=== PATIENT | female | born 1975 | race Caucasian/White ===

== ENCOUNTER 2018-09-23 06:18 | Day surgery (SDC) | payer OTHER ==
[2018-09-19 13:21] LABS: Urine Bacteria MANY /hpf (None Seen); Urine Blood 2+ /uL (Negative); Urine Hyaline Cast FEW /lpf (0 - 2); Urine Specific Gravity 1.009 (1.001-1.035); Urine WBC 32 /hpf (0 - 5)
[2018-09-19 13:24] LABS: Basophils # (auto) 0.1 uL; Basophils % (auto) 1.3 % (0.0-2.0); Eosinophils # (auto) 0.1 uL; Eosinophils % (auto) 1.3 % (0.0-7.0); Hematocrit 38.4 % (36.0-46.0); Hemoglobin 13.1 g/dL (12.2-16.2); Lymphocytes # (auto) 1.7 uL; Lymphocytes % (auto) 29.6 % (10.0-50.0); Mean Corpuscular Hemoglobin 31.8 pg (28.0-32.0); Mean Corpuscular Hgb Conc. 34.1 g/dL (32.0-36.0); Mean Corpuscular Volume 93.3 fL (80.0-100.0); Monocytes # (auto) 0.5 uL; Neutrophils # (auto) 3.5 uL; Neutrophils % (auto) 59.8 % (37.0-80.0); Nucleated Red Blood Cells % 0.1 %; Platelet Count (auto) 305 10^3/uL (140-450); Red Blood Cells 4.12 10^6/uL (4.0-5.20); Red Cell Distribution Width 12.6 % (11.8-14.3); White Blood Cell 5.9 10^3/uL (4.4-10.8)
[2018-09-19 13:31] LABS: INR 0.95 (0.9-1.15); Partial Thromboplastin Time 24.5 sec (23.64-32.05)
[2018-09-19 13:33] LABS: Calcium 8.9 mg/dL (8.5-10.1); Potassium 3.8 mmol/L (3.5-5.1)
[2018-09-19 13:36] LABS: Bilirubin, Total 0.6 mg/dL (0.2-1.0)
[~2018-09-23] VITALS: Ht 172.7 cm; Wt 77.1 kg
[~2018-09-23 06:18] MED LIST: LOSA-39 PO
[2018-09-23] MEDS ORDERED: ceFAZolin 1GM/50ML 50 ML IV ONE (07:09)
[2018-09-23] MEDS ORDERED: LIDOCAINE 1% HCL (LOCAL ANESTH.) INJ 20ML MDV ONE (07:13)
[2018-09-23] MEDS ORDERED: ROCURONIUM 10MG/ML 10ML VIAL IV ONE (08:04)
[2018-09-23] MEDS ORDERED: SUCCINYLCHOLINE CHLORIDE 20 MG/ML 10ML VIAL IV ONE (08:04)
[2018-09-23] MEDS ORDERED: ROPIVACAINE 0.5% (5MG/ML) 20ML AMPULE IJ ONE (08:04)
[2018-09-23] MEDS ORDERED: MIDAZOLAM HCL 1MG/1ML-2 ML VIAL ONE (08:09)
[2018-09-23] MEDS ORDERED: PROPOFOL 10 MG/ML 20 ML IV ONE (08:09)
[2018-09-23] MEDS ORDERED: PHENYLEPHRINE HCL 10 MG/ML VL ONE (08:09)
[2018-09-23] MEDS ORDERED: ePHEDrine SULFATE 50 MG/ML AMP ONE (08:09)
[2018-09-23] MEDS ORDERED: DexAMETHasone SOD PHOS 10MG/1ML VIAL INJ ONE (08:09)
[2018-09-23] MEDS ORDERED: fentaNYL CITRATE 100 MCG/2 ML VL ONE (08:09)
[2018-09-23] MEDS ORDERED: GLYCOPYRROLATE 0.2 MG/ML 1ML VIAL ONE (09:43)
[2018-09-23] MEDS ORDERED: NEOSTIGMINE 1 MG/ML INJ (10mg/10ML VIAL) ONE (09:43)
[2018-09-23] MEDS ORDERED: KETOROLAC TROMETH 30 MG/ML 1ML VIAL ONE (10:28)
[2018-09-23] MEDS ORDERED: ONDANSETRON HCL 4 MG/2 ML VIAL IV ONE (10:30)
[2018-09-23] MEDS ORDERED: HYDROmorphone HCL 2 MG/ML VL IV PRN ×2 (10:30)
[2018-09-23] MEDS ORDERED: MIDAZOLAM HCL 1MG/1ML-2 ML VIAL IV PRN (10:30)
[2018-09-23 11:08] VITALS: BP 145/78
== END 2018-09-23 11:23 | disposition home or self-care (01) ==
LOC: SUR 06:18
PROVIDERS: ATTEND Orthopaedic Surgery
DX: M75.101 Unspecified rotator cuff tear or rupture of right shoulder, not specified as traumatic (principal); M75.81 Other shoulder lesions, right shoulder; R22.31 Localized swelling, mass and lump, right upper limb; M75.01 Adhesive capsulitis of right shoulder; M75.41 Impingement syndrome of right shoulder; M75.51 Bursitis of right shoulder; M65.811 Other synovitis and tenosynovitis, right shoulder; I12.9 Hypertensive chronic kidney disease with stage 1 through stage 4 chronic kidney disease, or unspecified chronic kidney disease; N18.9 Chronic kidney disease, unspecified; Z79.899 Other long term (current) drug therapy; Z98.890 Other specified postprocedural states; Z98.51 Tubal ligation status
CPT/HCPCS: 23076; 23412; 23415; 29822; 36415; 64415; 76942; 80053; 81001; 84702; 85025; 85610; 85730; 88304; 93005; J0330; J0690; J1100; J1885; J2250; J2370; J2704; J2795; J3010; 76937; J2001

== ENCOUNTER 2024-03-16 13:52 | Emergency (ER) | payer OTHER ==
[~2024-03-16] VITALS: Ht 175.3 cm; Wt 81.8 kg
[~2024-03-16 13:52] MED LIST changes: -LOSA-39 PO; +LOSA-535 PO
--- NOTE | 2024-03-16 18:27 | ED.PDOC ---
GI ASSESSMENT HPI Comments 48 y.o female presents to the ED for a chief complaint of diffused abdominal pain associated with nausea and vomiting that presented at 10am today. Patient described pain as sharp, worsened around 1300 while at work and states it is constant but intensity is intermittent. Patient reports pain first was a 10/10 on the pain scale but now is a 7/10. She denies any nausea, vomiting, diarrhea, constipation, fever. Chief Complaint: Abdominal Pain Time Seen by MD: 18:14 Primary Care Provider: BON Whittington Notes: Nurses Notes, Medications, Allergies Allergies: Coded Allergies: NO KNOWN ALLERGIES (Unverified , 09/19/18) Home Meds Reported Medications Losartan Potassium (Losartan Potassium) 100 Mg Tab, 100 MG PO DAILY for 30 Days, MG 09/19/18 Information Source: Patient Mode of Arrival: Wheelchair Timing: Hours Duration: Since onset Quality: Sharp Vomitus: None Stool: Normal Severity: Moderate Recent: None Recent Hx of: None Pain Location: Epigastric Modifying Factors: Nothing Associated sign and symptoms: Nausea, Abdominal Pain Past Medical History Past Medical History (Other): One kidney only Surgical History (Other): tummy tuck [employer] History: No Pertinent [employer]HER History Family History Family History: Reviewed,noncontributory to illness Social History Smoker: Non-Smoker Alcohol: Denies ETOH Use Drugs: Denies Drug Use Lives In: Home Constitutional: reports: chills; denies: diaphoresis, fatigue, fever, malaise, sweats, weakness, others EENTM: denies: blurred vision, double vision, ear bleeding, ear discharge, ear drainage, ear pain, ear ringing, eye pain, eye redness, hearing loss, mouth pain, mouth swelling, nasal discharge, nose bleeding, nose congestion, nose pain, photophobia, tearing, throat pain, throat swelling, voice changes, others Respiratory: denies: cough, hemoptysis, orthopnea, SOB at rest, shortness of breath, SOB with excertion, stridor, wheezing, others Cardiovascular: denies: chest pain, dizzy spells, diaphoresis, Dyspnea on exertion, edema, irregular heart beat, left arm pain, lightheadedness, palpitations, PND, syncope, others Gastrointestinal: reports: abdominal pain, nausea; denies: abdomen distended, blood streaked bowels, constipated, diarrhea, dysphagia, difficulty swallowing, hematemesis, melena, poor appetite, poor fluid intake, rectal bleeding, rectal pain, vomiting, others Genitourinary: denies: abnormal vagina bleeding, burning, dyspareunia, dysuria, flank pain, frequency, hematuria, incontinence, pain, , vagina discharge, urgency, others Neurological: denies: dizziness, fainting, headache, left sided numbness, left sided weakness, numbness, paresthesia, pre-existing deficit, right sided numbness, right sided weakness, seizure, speech problems, tingling, tremors, weakness, others Musculoskeletal: denies: back pain, gout, joint pain, joint swelling, muscle pain, muscle stiffness, neck pain, others Integumetry: denies: bruises, change in color, change in hair/nails, dryness, laceration, lesions, lumps, rash, wounds, others Allergic/Immunocompromised: denies: Difficulty Healing, Frequent Infections, Hives, Itching, others Hematologic/Lymphatic: denies: anemia, blood clots, easy bleeding, easy bruising, swollen glands, others Endocrine: denies: excessive hunger, excessive sweating, excessive thirst, excessive urination, flushing, intolerance to cold, intolerance to heat, unexplained weight gain, unexplained weight loss, others Psychiatric: denies: anxiety, bipolar disorder, depression, hopeless, panic disorder, schizophrenia, sleepless, suicidal, others All Other Systems: Reviewed and Negative Physical Exam General Appearance: No Apparent Distress, Normal HEENT: Normal ENT Inspection, Pharynx Normal, TMs Normal Neck: Full Range of Motion, Non-Tender, Normal, Normal Inspection Respiratory: Chest Non-Tender, Lungs Clear, No Accessory Muscle Use, No Respir atory Distress, Normal Breath Sounds Cardiovascular: No Edema, No JVD, No Murmur, No Gallop, Normal Peripheral Pulses, Regular Rate/Rhythm Breast Exam: Deferred Gastrointestinal: Epigastric (mid ), Tenderness Genitalia: Deferred Pelvic: Deferred Rectal: Deferred Extremities: No calf tenderness, Normal capillary refill, Normal inspection, Normal range of motion, Non-tender, No pedal edema Musculoskeletal : Apperance: Normal Neurologic: Alert, radiator tester II-XII nml as Tested, No Motor Deficits, Normal Affect, Normal Mood, No Sensory Deficits Cerebellar Function: Normal Reflexes: Normal Skin: Dry, Normal Color, Warm Lymphatic: No Adenopathy Was a procedure done? Was a procedure done?: No GI differential Dx Differential Diagnosis: Esophagitis, Gastritis/PUD, Gastroenteritis, Electrolyte Imbalance, Viral X-Ray, Labs, Meds, VS Vital Signs Date Time Temp Pulse Resp B/P (MAP) Pulse Ox O2 Delivery O2 Flow Rate FiO2 03/16/24 20:54 75 19 100 Room Air* 0 21 03/16/24 20:40 63 15 154/96 03/16/24 20:34 62 15 154/96 (115) 100 03/16/24 15:43 58 18 135/79 (97) 100 03/16/24 14:15 97.4 58 18 155/84 (107) 100 Lab Test 03/16/24 19:34 03/16/24 14:16 Range/Units White Blood Count 6.6 4.4-10.8 10^3/uL Red Blood Count 3.85 L 4.0-5.20 10^6/uL Hemoglobin 11.8 L 12.2-16.2 g/dL Hematocrit 35.3 L 36.0-46.0 % Mean Corpuscular Volume 91.8 80.0-100.0 fL Mean Corpuscular Hemoglobin 30.8 28.0-32.0 pg Mean Corpuscular Hemoglobin Concent 33.5 32.0-36.0 g/dL Red Cell Distribution Width 14.5 H 11.8-14.3 % Platelet Count 305 140-450 10^3/uL Mean Platelet Volume 7.0 6.9-10.8 fL Neutrophils (%) (Auto) 66.5 37.0-80.0 % Lymphocytes (%) (Auto) 25.3 10.0-50.0 % Monocytes (%) (Auto) 7.0 0.0-12.0 % Eosinophils (%) (Auto) 0.6 0.0-7.0 % Basophils (%) (Auto) 0.6 0.0-2.0 % Neutrophils # (Auto) 4.4 1.6-8.6 10 ^3/uL Lymphocytes # (Auto) 1.7 0.4-5.4 10 ^3/uL Monocytes # (Auto) 0.5 0-1.3 10 ^3/uL Eosinophils # (Auto) 0 0-0.8 10 ^3/uL Basophils # (Auto) 0 0-0.2 10 ^3/uL Nucleated Red Blood Cells 0.1 % Sodium Level 140 136-145 mmol/L Potassium Level 4.0 3.5-5.1 mmol/L Chloride Level 107 98-107 mmol/L Carbon Dioxide Level 27 20-31 mmol/L Anion Gap 6 5-15 Blood Urea Nitrogen 12 9-23 mg/dL Creatinine 0.72 0.550-1.02 mg/dL Glomerular Filtration Rate Calc 104 >90 mL/min BUN/Creatinine Ratio 16.7 10.0-20.0 Serum Glucose 97 74-106 mg/dL Calcium Level 9.7 8.7-10.4 mg/dL Total Bilirubin 0.5 0.2-1.0 mg/dL Aspartate Amino Transferase (AST) 21 13-40 U/L Alanine Aminotransferase (ALT) 16 7-40 U/L Alkaline Phosphatase 98 46-116 U/L Total Protein 7.3 5.7-8.2 g/dL Albumin 4.6 3.2-4.8 g/dL Lipase 31 12-53 U/L Urine Color Light-yellow Yellow Urine Clarity Clear Clear Urine pH 6.0 5.0-9.0 Urine Specific Blackwell 1.021 1.001-1.035 Urine Protein Negative Negative Urine Ketones Negative Negative Urine Blood Negative Negative /uL Urine Nitrite Negative Negative Urine Bilirubin Negative Negative Urine Urobilinogen Normal Negative mg/dL Urine Leukocyte Esterase Negative Negative /uL Urine RBC None seen 0 - 4 /hpf Urine WBC None seen 0 - 5 /hpf Urine Squamous Epithelial Cells Few <5 /hpf Urine Bacteria None seen None Seen /hpf Urine Hyaline Casts Few 0 - 2 /lpf Urine Glucose Normal Normal mg/dL Current Medications Medications (Trade) Dose Ordered Sig/Bhavik Route Start Time Stop Time Status Last Admin Morphine Sulfate 4 mg ONCE ONCE IM 03/16/24 20:00 03/16/24 20:01 DC 03/16/24 20:40 Ondansetron HCl (Zofran) 4 mg ONCE ONCE IM 03/16/24 20:00 03/16/24 20:01 DC 03/16/24 20:39 X-Ray, Labs, Meds, VS Comment Imaging: X-rays and CT scans were reviewed and interpreted by this provider, imaging shows no fractures and no pathological disease. Pending radiology review. Laboratory: Labs reviewed and interpreted by this provider. No significant abnormalities noted. Patient has prior medical visits reviewed. Med reconciliation performed Vital signs reviewed Time of 1ST Reevaluation: 18:23 Reevaluation 1ST: Improved Patient Education/Counseling: Diagnosis, Treatment, Prognosis, Need For Follow Up (Follow up in the emergency department in the next 4-6 hours if symptoms worsen. Follow up in the emergency room in 24 hours if symptoms have not improved.) Family Education/Counseling: No Family Present Departure 1 Departure Time of Disposition: 21:35 Impression: Primary Impression: Gastritis Qualified Codes: K29.00 - Acute gastritis without bleeding Disposition: HOME / SELF CARE / HOMELESS Condition: Fair e-Prescriptions Omeprazole (Omeprazole Dr) 40 Mg Cap 40 MG PO DAILY, #30 CAP Prov: ALYSSA MARX 03/16/24 Ondansetron Odt 4MG Tab (ZOFRAN PO) 4 Mg Tb 4 MG PO TID PRN, #20 TAB ODT TAB-DISSOLVE IN MOUTH, THEN SWALLOW Prov: ALYSSA MARX 03/16/24 Discharged With: Self Critical Care Note Critical Care Time?: No Stability Stability form required: No I personally scribed for ALYSSA MARX ([email or web address]) on 03/16/24 at 18:27. Electronically submitted by Nory Berman ([facility]). ALYSSA MARX Mar 16, 2024 18:27
--- NOTE | 2024-03-16 18:46 | DVH ---
EXAM: CT Abdomen and Pelvis Without Intravenous Contrast CLINICAL INDICATION: abd pain TECHNIQUE: Axial computed tomography images of the abdomen and pelvis without intravenous contrast. This CT exam was performed using one or more of the following dose reduction techniques: automated exposure control, adjustment of the mA and/or kV according to patient size, and/or use of iterative r econstruction technique. RADIATION DOSE: CTDlvol= 15 mGy, DLP= 815.48 mGy-cm COMPARISON: None FINDINGS: LUNG BASES: Unremarkable. No mass. No consolidation. ABDOMEN: LIVER: Unremarkable. GALLBLADDER AND BILE DUCTS: Unremarkable. No calcified stones. No ductal dilation. PANCREAS: Unremarkable. No ductal dilation. SPLEEN: Unremarkable. No splenomegaly. ADRENALS: Unremarkable. No mass. KIDNEYS AND URETERS: Mild to moderate right hydro ureteronephrosis without obstruction calculus. STOMACH AND BOWEL: Unremarkable. No obstruction. No mucosal thickening. PELVIS: APPENDIX: Normal appendix. BLADDER: Unremarkable. No stones. REPRODUCTIVE: Suggestion of calcified urine fibroid. ABDOMEN and PELVIS: INTRAPERITONEAL SPACE: Unremarkable. No free air. No significant fluid collection. BONES/JOINTS: No acute fracture. No dislocation. SOFT TISSUES: Unremarkable. VASCULATURE: Unremarkable. No abdominal aortic aneurysm. LYMPH NODES: Unremarkable. No enlarged lymph nodes. OTHER FINDINGS: . . IMPRESSION: 1. Normal appendix. 2. Mild to moderate right hydro ureteronephrosis without obstruction calculus. 3. Suggestion of calcified urine fibroid. HS:Y
[2024-03-16 19:55] LABS: Basophils # (auto) 0 10 ^3/uL (0-0.2); Basophils % (auto) 0.6 % (0.0-2.0); Eosinophils # (auto) 0 10 ^3/uL (0-0.8); Eosinophils % (auto) 0.6 % (0.0-7.0); Hematocrit 35.3 % (36.0-46.0); Hemoglobin 11.8 g/dL (12.2-16.2); Lymphocytes # (auto) 1.7 10 ^3/uL (0.4-5.4); Lymphocytes % (auto) 25.3 % (10.0-50.0); Mean Corpuscular Hemoglobin 30.8 pg (28.0-32.0); Mean Corpuscular Hgb Conc. 33.5 g/dL (32.0-36.0); Mean Corpuscular Volume 91.8 fL (80.0-100.0); Monocytes # (auto) 0.5 10 ^3/uL (0-1.3); Neutrophils # (auto) 4.4 10 ^3/uL (1.6-8.6); Neutrophils % (auto) 66.5 % (37.0-80.0); Nucleated Red Blood Cells % 0.1 %; Platelet Count (auto) 305 10^3/uL (140-450); Red Blood Cells 3.85 10^6/uL (4.0-5.20); Red Cell Distribution Width 14.5 % (11.8-14.3); White Blood Cell 6.6 10^3/uL (4.4-10.8)
[2024-03-16 20:11] LABS: Alanine Aminotransferase 16 U/L (7-40); Albumin 4.6 g/dL (3.2-4.8); Alkaline Phosphatase 98 U/L (46-116); Anion Gap 6 (5-15); Aspartate Aminotransferase 21 U/L (13-40); BUN/Creatinine Ratio 16.7 (10.0-20.0); Bilirubin, Total 0.5 mg/dL (0.2-1.0); Blood Urea Nitrogen 12 mg/dL (9-23); Calcium 9.7 mg/dL (8.7-10.4); Carbon Dioxide 27 mmol/L (20-31); Glucose 97 mg/dL (74-106); Lipase 31 U/L (12-53); Sodium 140 mmol/L (136-145); Total Protein 7.3 g/dL (5.7-8.2)
[2024-03-16 20:21] LABS: Chloride 107 mmol/L (98-107)
[2024-03-16] MEDS: ONDANSETRON HCL 4 MG/2 ML VIAL IM ONE (20:39)
[2024-03-16] MEDS: MORPHINE SULFATE 4 MG/ML SYR/VIAL IM ONE (20:40)
[2024-03-16 20:54] VITALS: PULSE 75; RESP 19; O2SAT 100
[2024-03-16 20:55] LABS: Urine Bacteria None Seen /hpf (None Seen); Urine WBC None Seen /hpf (0 - 5)
[2024-03-16 21:08] LABS: Urine Blood Negative /uL (Negative); Urine Clarity Clear (Clear); Urine Color Light-Yellow (Yellow); Urine Hyaline Cast FEW /lpf (0 - 2); Urine Protein, UAD Negative (Negative); Urine Specific Gravity 1.021 (1.001-1.035); Urine Squamous Epithelial Cell FEW /hpf (<5); Urine Urobilinogen Normal (Negative)
[2024-03-16] MEDS ORDERED: OMEP-448 PO (21:37)
[2024-03-16] MEDS ORDERED: ZOFR4T PO (21:37)
[2024-03-16 22:08] VITALS: BP 154/94; PULSE 67; RESP 16; TEMP 98.4; O2SAT 98
== END 2024-03-16 22:10 | disposition home or self-care (01) ==
LOC: ER 13:52
DX: K29.70 Gastritis, unspecified, without bleeding (principal); Z98.890 Other specified postprocedural states
CPT/HCPCS: 36415; 74176; 80053; 81001; 83690; 85025; 96372; 99285; J2270; J2405

== ENCOUNTER 2024-10-16 18:01 | Inpatient (IN) | payer OTHER ==
[~2024-10-16] VITALS: Ht 175.3 cm; Wt 92.1 kg
[~2024-10-16 18:01] MED LIST changes: +OMEP-448 PO; +ZOFR4T PO
[2024-10-16 21:00] VITALS: BP 128/92; PULSE 56; RESP 17; TEMP 98.9; O2SAT 96
[2024-10-16] MEDS ORDERED: MORPHINE SULFATE INJ 2 MG/ml SYRG IV PRN (21:30)
[2024-10-16] MEDS ORDERED: NITROGLYCERIN 0.4 MG SL TAB SL PRN (21:30)
[2024-10-16 22:18] LABS: Hematocrit 28.4 % (36.0-46.0); Hemoglobin 9.9 g/dL (12.2-16.2); Mean Corpuscular Hemoglobin 33.3 pg (28.0-32.0); Mean Corpuscular Volume 95.3 fL (80.0-100.0); Nucleated Red Blood Cells % 0.0 %
[2024-10-16 22:35] LABS: Triglycerides 83 mg/dL (< 150)
[2024-10-16 22:37] LABS: Cholesterol 150 mg/dL (< 200); HDL Cholesterol 54 mg/dL (40-59)
[2024-10-16 22:38] LABS: Albumin 3.9 g/dL (3.2-4.8); Alkaline Phosphatase 84 U/L (46-116); Anion Gap 7 (5-15); BUN/Creatinine Ratio 13.8 (10.0-20.0); Bilirubin, Total 0.4 mg/dL (0.2-1.0); Blood Urea Nitrogen 12 mg/dL (9-23); Carbon Dioxide 26 mmol/L (20-31); Glucose 92 mg/dL (74-106); Potassium 3.8 mmol/L (3.5-5.1); Sodium 141 mmol/L (136-145); Total Protein 6.2 g/dL (5.7-8.2)
[2024-10-16 22:39] LABS: Alanine Aminotransferase 9 U/L (7-40); Calcium 8.2 mg/dL (8.7-10.4); Chloride 108 mmol/L (98-107)
[2024-10-16] MEDS: FUROSEMIDE 20 MG/2 ML VIAL IV ONE (22:57)
[2024-10-16] MEDS: HYDROcodone-ACET 10/325MG TAB PO PRN (22:58)
--- NOTE | 2024-10-16 23:39 | DVHHP2 ---
Allergies: Coded Allergies: NO KNOWN ALLERGIES (Unverified , 09/19/18) Home Meds Active Scripts Omeprazole (Omeprazole Dr) 40 Mg Cap, 40 MG PO DAILY, #30 CAP Prov:ALYSSA MARX 03/16/24 Ondansetron Odt 4MG Tab (ZOFRAN PO) 4 Mg Tb, 4 MG PO TID PRN, #20 TAB ODT TAB-DISSOLVE IN MOUTH, THEN SWALLOW Prov:ALYSSA MARX 03/16/24 Reported Medications Losartan Potassium (Losartan Potassium) 100 Mg Tab, 100 MG PO DAILY for 30 Days, MG 09/19/18 Current Medications Current Medications Medications (Trade) Dose Ordered Sig/Bhavik Route PRN Reason Start Time Stop Time Status Last Admin Nitroglycerin (Ntrostat Sublingual) 0.4 mg Q5MINP PRN SL FOR CHEST PAIN 10/16/24 21:30 Morphine Sulfate 2 mg Q30M PRN IV FOR CHEST PAIN 10/16/24 21:30 Furosemide (Lasix Injection) 20 mg BIDD IV 10/17/24 08:00 Valsartan (Diovan) 160 mg DAILY PO 10/17/24 10:00 Acetaminophen/ Hydrocodone Bitart (Halls 10/325MG Tab) 1 tab Q6HP PRN PO MODERATE PAIN (4-6 PAIN SCALE) 10/16/24 22:15 10/16/24 22:58 Levetiracetam (Keppra Tablet) 500 mg BID PO 10/17/24 10:00 Vital Signs Vital Signs Date Time Temp Pulse Resp B/P (MAP) Pulse Ox O2 Delivery O2 Flow Rate FiO2 10/16/24 22:57 132/77 10/16/24 21:00 98.9 56 17 96 98.9 SEPSIS Sepsis Screen Physician Orders Admit (10/16/24 21:24) Oxygen By Nasal Cannula (10/16/24 21:24) Nitroglycerin Sublingual (Ntrostat Subli (10/16/24 21:30) Morphine Sulfate Injection (10/16/24 21:30) Stat Ekg For Chest Pain (10/16/24 21:24) Notify Md Of Changes From Base (10/16/24 21:24) Antique Dealer For 24 Hours (10/16/24 21:24) Emergency Dysrhythmia Protocol (10/16/24 21:24) Rhythm Strips Once Every Shift (10/16/24 21:24) 2 Gm Sodium Diet (10/17/24 Breakfast) Code Status (10/16/24 21:24) Urinalysis (10/16/24 21:24) Chest Two Views Routine (10/16/24 21:24) Echo 2d Mode Cardiac Dop (10/16/24 21:24) Saline Lock (10/16/24 21:24) Furosemide Injection (Lasix Injection) (10/17/24 08:00) Valsartan (Diovan) (10/17/24 10:00) Hydrocodone-Acet 10/325mg Tab (Halls 10/ (10/16/24 22:15) Levetiracetam Tablet (Keppra Tablet) (10/17/24 10:00) Intake And Output (10/16/24 22:03) Daily Weight (10/16/24 22:03) Bilat Lower Dvt (10/16/24 23:27) Vital Signs Date Time Temp Pulse Resp B/P (MAP) Pulse Ox O2 Delivery O2 Flow Rate FiO2 10/16/24 22:57 132/77 10/16/24 21:00 98.9 56 17 128/92 (104) 96 98.9 Laboratory Tests Test 10/16/24 22:08 White Blood Count 4.4 10^3/uL (4.4-10.8) Medications Medications Dose Ordered Sig/Bhavik Route Start Time Stop Time Status Last Admin Dose Admin Acetaminophen/ Hydrocodone Bitart 1 tab Q6HP PRN PO 10/16/24 22:15 10/16/24 22:58 Furosemide 20 mg ONCE ONCE IV 10/16/24 22:00 10/16/24 22:08 DC 10/16/24 22:57 Results Labs Test 10/16/24 22:08 Range/Units White Blood Count 4.4 4.4-10.8 10^3/uL Red Blood Count 2.98 L 4.0-5.20 10^6/uL Hemoglobin 9.9 L 12.2-16.2 g/dL Hematocrit 28.4 L 36.0-46.0 % Mean Corpuscular Volume 95.3 80.0-100.0 fL Mean Corpuscular Hemoglobin 33.3 H 28.0-32.0 pg Mean Corpuscular Hemoglobin Concent 34.9 32.0-36.0 g/dL Red Cell Distribution Width 12.5 11.8-14.3 % Platelet Count 245 140-450 10^3/uL Mean Platelet Volume 6.6 L 6.9-10.8 fL Neutrophils (%) (Auto) 41.3 37.0-80.0 % Lymphocytes (%) (Auto) 45.9 10.0-50.0 % Monocytes (%) (Auto) 9.6 0.0-12.0 % Eosinophils (%) (Auto) 2.2 0.0-7.0 % Basophils (%) (Auto) 1.0 0.0-2.0 % Neutrophils # (Auto) 1.8 1.6-8.6 10 ^3/uL Lymphocytes # (Auto) 2.0 0.4-5.4 10 ^3/uL Monocytes # (Auto) 0.4 0-1.3 10 ^3/uL Eosinophils # (Auto) 0.1 0-0.8 10 ^3/uL Basophils # (Auto) 0 0-0.2 10 ^3/uL Nucleated Red Blood Cells 0.0 % Sodium Level 141 136-145 mmol/L Potassium Level 3.8 3.5-5.1 mmol/L Chloride Level 108 H 98-107 mmol/L Carbon Dioxide Level 26 20-31 mmol/L Anion Gap 7 5-15 Blood Urea Nitrogen 12 9-23 mg/dL Creatinine 0.87 0.550-1.02 mg/dL Glomerular Filtration Rate Calc 82 >90 mL/min BUN/Creatinine Ratio 13.8 10.0-20.0 Serum Glucose 92 74-106 mg/dL Hemoglobin A1c 5.3 <5.7 % A1C Calcium Level 8.2 L 8.7-10.4 mg/dL Total Bilirubin 0.4 0.2-1.0 mg/dL Aspartate Amino Transferase (AST) 17 13-40 U/L Alanine Aminotransferase (ALT) 9 7-40 U/L Alkaline Phosphatase 84 46-116 U/L B-Type Natriuretic Peptide 304.97 0-100 pg/mL Total Protein 6.2 5.7-8.2 g/dL Albumin 3.9 3.2-4.8 g/dL Triglycerides Level 83 < 150 mg/dL Cholesterol Level 150 < 200 mg/dL LDL Cholesterol 86 < 100 mg/dL HDL Cholesterol 54 40-59 mg/dL JAMARCUS SMALL MD Oct 16, 2024 23:39
[2024-10-16 23:49] VITALS: PULSE 77; RESP 17; O2SAT 97
[2024-10-17] VITALS (9 sets, daily range): BP systolic 111–128; BP diastolic 67–89; PULSE 58–73; RESP 17–20; TEMP 98–99.5; O2SAT 96–100
--- NOTE | 2024-10-17 00:25 | DVH ---
Bilateral lower extremity venous duplex Clinical History: BLE SWELLING Comparison: None Technique: Duplex Doppler evaluation of the deep venous systems of both lower extremities from the common femora l veins to the popliteal veins including color Doppler and spectral/pulsed waveform analysis was perf ormed. Findings: RIGHT SIDE: The common femoral vein demonstrates appropriate compressibility and waveform variability. There is compressibility/patency of the great saphenous vein at the proximal thigh. The femoral vein demonstrates appropriate compressibility and waveform variability. The deep femoral vein demonstrates appropriate compressibility and waveform variability. The popliteal vein demonstrates appropriate compressibility and waveform variability. There is normal compressibility at the tibioperoneal trunk. LEFT SIDE: The common femoral vein demonstrates appropriate compressibility and waveform variability. There is compressibility/patency of the great saphenous vein at the proximal thigh. The femoral vein demonstrates appropriate compressibility and waveform variability. The deep femoral vein demonstrates appropriate compressibility and waveform variability. The popliteal vein demonstrates appropriate compressibility and waveform variability. There is normal compressibility at the tibioperoneal trunk. Impression: 1. No right or left femoropopliteal venous thrombosis. 2. 2.4 x 1 x 2.5 cm left inguinal lymphadenopathy.
[2024-10-17] MEDS ORDERED: HYDR-4902 PO (01:23)
[2024-10-17 08:08] LABS: Hematocrit 31.1 % (36.0-46.0); Hemoglobin 10.9 g/dL (12.2-16.2); Mean Corpuscular Hemoglobin 33.3 pg (28.0-32.0); Mean Corpuscular Volume 94.4 fL (80.0-100.0); Nucleated Red Blood Cells % 0.1 %
[2024-10-17 08:10] LABS: Alanine Aminotransferase 11 U/L (7-40); Alkaline Phosphatase 84 U/L (46-116); Anion Gap 11 (5-15); BUN/Creatinine Ratio 11.4 (10.0-20.0); Blood Urea Nitrogen 10 mg/dL (9-23); Calcium 8.8 mg/dL (8.7-10.4); Carbon Dioxide 25 mmol/L (20-31); Chloride 106 mmol/L (98-107); Glucose 90 mg/dL (74-106); Potassium 3.5 mmol/L (3.5-5.1); Sodium 142 mmol/L (136-145); Total Protein 6.8 g/dL (5.7-8.2); Triglycerides 144 mg/dL (< 150)
[2024-10-17 08:11] LABS: Albumin 4.4 g/dL (3.2-4.8); Bilirubin, Total 0.6 mg/dL (0.2-1.0); Cholesterol 167 mg/dL (< 200); HDL Cholesterol 57 mg/dL (40-59)
[2024-10-17] MEDS: levETIRAcetam 500 MG TAB PO SCH (09:17)
[2024-10-17] MEDS: VALSARTAN 80 MG TAB PO SCH (09:18)
[2024-10-17] MEDS: FUROSEMIDE 20 MG/2 ML VIAL IV SCH (09:19)
[2024-10-17 11:21] LABS: Urine Protein, UAD Negative (Negative)
--- NOTE | 2024-10-17 14:04 | DVH ---
CHEST RADIOGRAPH Indication: DOCTOR ORDER/ADMISSION Technique: Frontal and lateral view of the chest was obtained Comparison: None FINDINGS: Lines and Tubes: None Lungs: Clear Pleura: No effusion. No pneumothorax. Cardiomediastinal contours: Unremarkable Bones: Unremarkable IMPRESSION: 1. No evidence of acute disease.
--- NOTE | 2024-10-17 20:20 | DVHPN2 ---
Progress Note - Dictate Date Seen: Oct 17, 2024 Subjective CHF R flank paim vital signs Vital Sign Date Time Temp Pulse Resp B/P (MAP) Pulse Ox O2 Delivery O2 Flow Rate FiO2 10/17/24 18:27 123/82 10/17/24 17:00 99.4 60 20 97 99.4 10/17/24 08:00 Room Air* 0 21 Total Intake and Output 10/16/24 10/16/24 10/17/24 15:00 23:00 07:00 Intake Total 200 ml Balance 200 ml medications Current Medications Medications Dose Ordered Sig/Bhavik Route Start Time Stop Time Status Last Admin Dose Admin Nitroglycerin 0.4 mg Q5MINP PRN SL 10/16/24 21:30 Morphine Sulfate 2 mg Q30M PRN IV 10/16/24 21:30 Furosemide 20 mg BIDD IV 10/17/24 08:00 10/17/24 18:27 20 MG Valsartan 160 mg DAILY PO 10/17/24 10:00 10/17/24 09:18 160 MG Acetaminophen/ Hydrocodone Bitart 1 tab Q6HP PRN PO 10/16/24 22:15 10/17/24 18:27 1 TAB Levetiracetam 500 mg BID PO 10/17/24 10:00 10/17/24 09:17 500 MG laboratory and microbiology Laboratory Tests 10/17/24 07:18 Test 10/17/24 07:18 Range/Units Serum Glucose 90 74-106 mg/dL Assessment/Plan Morphine KCL JAMARCUS SMALL MD Oct 17, 2024 20:20
[2024-10-17] MEDS: POTASSIUM CHL 20 Meq TABLET PO ONE (20:55)
[2024-10-17] MEDS: MORPHINE SULFATE INJ 2 MG/ml SYRG IV PRN (21:01)
[2024-10-18] VITALS (7 sets, daily range): BP systolic 113–127; BP diastolic 69–90; PULSE 60–86; RESP 16–18; TEMP 97.8–99.4; O2SAT 96–99
--- NOTE | 2024-10-18 02:52 | DVHSR ---
APPROVED REPORT EXAM: Two-dimensional and M-mode echocardiogram with Doppler and color Doppler. Blood Pressure: 121/77 mmHg INDICATION CHF RISK FACTORS Height: 5'9", Weight: 198 DIMENSIONS LVDd5.0 (3.8-5.7cm)LA (2D)3.7 (1.9-4.0cm)Aortic Root3.5 (2.0-3.7cm) LVDs3.4 (2.5-4.0cm)LA (MM) (1.9-4.0cm)Aortic Cusp Exc2.0 (1.5-2.0cm) EF (%) 60.0 (55-70%)Rt. Atrium3.7 (1.9-4.0cm)Asc. Aorta cm IVSd0.9 (0.7-1.1cm)RV (D) (1.8-2.4cm) PWd0.9 (0.7-1.1cm) Mitral Valve MitralMitral Stenosis E wave0.80m/sMV Mean GR.mmHg A wave0.45m/sMV Peak GR.mmHg E/A ratio1.82D MVAcm2 DECEL [id number] 1/2 Timems Aortic Valve Aortic ValveAortic Stenosis V11.15m/Alf Mean GR.4mmHg V21.32m/Alf Peak GR.7mmHg LVOT Diameter2.0 (1.8-2.4cm)Doppler AVA2.74cm2 Pulmonic Valve V20.69m/s Tricuspid Valve TR Velocity2.55m/s [id number] Other Information Technically limited study due to body habitus and implants. Conclusion LV EF IS 66% AND IS NORMAL NORMAL VALVES NORMAL RV FUNCTION,SIZE AND PRESSURE NO EFFUSION
[2024-10-18] MEDS: LEVOTHYROXINE SODIUM 25 MCG TAB PO SCH (05:12)
[2024-10-18 07:45] LABS: Alkaline Phosphatase 88 U/L (46-116); Anion Gap 11 (5-15); BUN/Creatinine Ratio 12.0 (10.0-20.0); Bilirubin, Total 0.8 mg/dL (0.2-1.0); Blood Urea Nitrogen 11 mg/dL (9-23); Calcium 9.6 mg/dL (8.7-10.4); Carbon Dioxide 26 mmol/L (20-31); Chloride 103 mmol/L (98-107); Glucose 95 mg/dL (74-106); Magnesium 2.1 mg/dL (1.6-2.6); Potassium 3.9 mmol/L (3.5-5.1); Sodium 140 mmol/L (136-145); Total Protein 7.7 g/dL (5.7-8.2)
[2024-10-18 07:48] LABS: Alanine Aminotransferase 9 U/L (7-40); Albumin 4.8 g/dL (3.2-4.8)
[2024-10-18] MEDS: POTASSIUM CHL 20 Meq TABLET PO SCH (09:22)
--- NOTE | 2024-10-18 14:14 | DVH ---
INDICATION: Hypertension TECHNIQUE: Multiple real-time sonographic images of the kidneys and bladder were obtained. Duplex Doppler evaluation including color Doppler and spectral/pulsed waveform analysis of the bilate ral renal arteries was performed. COMPARISON: None FINDINGS: The right kidney measures 12.9 cm in length. The right renal echogenicity, contour and cortical thick ness are within normal limits. No hydronephrosis or large masses/calculi are seen. 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 Aorta peak systolic velocity, 107 cm/s Right renal artery peak systolic velocity, 95 cm/s (< 180 cm/s = normal). Right RAR : 0.9 (< 3.5, normal) Right RI: 0.5 (< 0.75, normal) IMPRESSION: No findings to suggest right renal artery stenosis. *Alee Sahu Techniques in Noninvasive Vascular Diagnosis 2002
[2024-10-18] MEDS: FUROSEMIDE 20 MG/2 ML VIAL IV SCH (21:23)
--- NOTE | 2024-10-18 22:30 | DVHPN2 ---
Progress Note - Dictate Subjective Currently being treated for CHF Responding to IV Lasix Reports to have R flank pains-treated with IV morphine Noted patient to have urticarial erythematous streaks at IV site Morphine has been discontinued vital signs Vital Sign Date Time Temp Pulse Resp B/P (MAP) Pulse Ox O2 Delivery O2 Flow Rate FiO2 10/18/24 17:35 88 16 115/75 10/18/24 17:00 98.9 96 98.9 10/18/24 08:00 Room Air* 0 21 Total Intake and Output 10/17/24 10/17/24 10/18/24 15:00 23:00 07:00 Intake Total 600 ml 700 ml 515 ml Output Total 200 ml 100 ml 700 ml Balance 400 ml 600 ml -185 ml medications Current Medications Medications Dose Ordered Sig/Bhavik Route Start Time Stop Time Status Last Admin Dose Admin Nitroglycerin 0.4 mg Q5MINP PRN SL 10/16/24 21:30 Morphine Sulfate 2 mg Q30M PRN IV 10/16/24 21:30 Cancel Valsartan 160 mg DAILY PO 10/17/24 10:00 10/18/24 09:24 160 MG Acetaminophen/ Hydrocodone Bitart 1 tab Q6HP PRN PO 10/16/24 22:15 10/18/24 21:20 1 TAB Levetiracetam 500 mg BID PO 10/17/24 10:00 10/18/24 21:18 500 MG Potassium Chloride 20 meq DAILY PO 10/18/24 10:00 10/18/24 09:22 20 MEQ Furosemide 20 mg DAILY@BREAKFAST IV 10/18/24 20:00 Levothyroxine Sodium 50 mcg QAM@0600 PO 10/19/24 06:00 laboratory and microbiology Laboratory Tests 10/18/24 06:17 10/17/24 07:18 Test 10/18/24 06:17 Range/Units Serum Glucose 95 74-106 mg/dL Problem List Acute on chronic congestive heart failure a. R ventricular failure Well-controlled hypertension Allergic reaction to morphine Exogenous obesity Assessment/Plan Discontinue morphine KCL JAMARCUS SMALL MD Oct 18, 2024 22:30
[2024-10-19 01:00] VITALS: BP 101/64; PULSE 55; RESP 16; TEMP 97.5; O2SAT 96
[2024-10-19] MEDS: HYDROmorphone HCL 2 MG/ML VL/or syr IV PRN (04:44)
[2024-10-19 04:52] VITALS: BP 119/86; PULSE 62; RESP 16; TEMP 97.6; O2SAT 97
[2024-10-19 05:55] LABS: Chloride 102 mmol/L (98-107); Potassium 3.6 mmol/L (3.5-5.1); Sodium 140 mmol/L (136-145)
[2024-10-19 05:56] LABS: Anion Gap 10 (5-15); Calcium 9.2 mg/dL (8.7-10.4); Carbon Dioxide 28 mmol/L (20-31)
[2024-10-19 06:01] LABS: Blood Urea Nitrogen 14 mg/dL (9-23); Glucose 106 mg/dL (74-106)
[2024-10-19] MEDS: LEVOTHYROXINE SODIUM 25 MCG TAB PO SCH (06:10)
[2024-10-19 06:17] LABS: BUN/Creatinine Ratio 16.9 (10.0-20.0)
--- NOTE | 2024-10-19 06:49 | DVH ---
CHEST RADIOGRAPH Indication: CHF Technique: Frontal and lateral view of the chest was obtained Comparison: XY CHEST TWO VIEWS ROUTINE on DOS: 10/17/24 FINDINGS: Lines and Tubes: None Lungs: Clear Pleura: No effusion. No pneumothorax. Cardiomediastinal contours: Unremarkable Bones: Unremarkable IMPRESSION: 1. No evidence of acute disease.
[2024-10-19 08:00] VITALS: PULSE 66
[2024-10-19 08:30] VITALS: BP 119/85; PULSE 73; RESP 16; TEMP 97.1; O2SAT 97
[2024-10-19] MEDS ORDERED: TORS10TA12 PO (09:50)
[2024-10-19] MEDS ORDERED: VALS160T82 OR (09:50)
--- NOTE | 2024-10-19 10:08 | DVHPN2 ---
Progress Note - Dictate Date Seen: Oct 19, 2024 Subjective Currently being treated for CHF Responding to IV Lasix Reports to have R flank pains-treated with IV morphine Noted patient to have urticarial erythematous streaks at IV site Morphine has been discontinued vital signs Vital Sign Date Time Temp Pulse Resp B/P (MAP) Pulse Ox O2 Delivery O2 Flow Rate FiO2 10/19/24 09:00 73 16 119/85 10/19/24 08:30 97.1 97 97.1 10/19/24 08:20 Room Air* 0 21 Total Intake and Output 10/18/24 10/18/24 10/19/24 15:00 23:00 07:00 Intake Total 480 ml 700 ml Output Total 1400 ml 350 ml 700 ml Balance -1400 ml 130 ml 0 ml medications Current Medications Medications Dose Ordered Sig/Bhavik Route Start Time Stop Time Status Last Admin Dose Admin Nitroglycerin 0.4 mg Q5MINP PRN SL 10/16/24 21:30 Morphine Sulfate 2 mg Q30M PRN IV 10/16/24 21:30 Cancel Valsartan 160 mg DAILY PO 10/17/24 10:00 10/19/24 08:57 160 MG Acetaminophen/ Hydrocodone Bitart 1 tab Q6HP PRN PO 10/16/24 22:15 10/18/24 21:20 1 TAB Levetiracetam 500 mg BID PO 10/17/24 10:00 10/19/24 08:58 500 MG Potassium Chloride 20 meq DAILY PO 10/18/24 10:00 10/19/24 08:58 20 MEQ Furosemide 20 mg DAILY@BREAKFAST IV 10/18/24 20:00 10/19/24 08:58 20 MG Levothyroxine Sodium 50 mcg QAM@0600 PO 10/19/24 06:00 10/19/24 06:10 50 MCG Hydromorphone HCl 0.8 mg Q4HPRN PRN IV 10/18/24 22:45 10/19/24 09:00 0.8 MG laboratory and microbiology Laboratory Tests 10/19/24 05:20 10/17/24 07:18 Test 10/19/24 05:20 Range/Units Serum Glucose 106 74-106 mg/dL Problem List Acute on chronic congestive heart failure a. R ventricular failure Well-controlled hypertension Allergic reaction to morphine Exogenous obesity Assessment/Plan Discontinue morphine KCL JAMARCUS SMALL MD Oct 19, 2024 10:08
[2024-10-19] MEDS ORDERED: LEVO25TA6 PO (10:38)
[2024-10-19 12:30] VITALS: BP 118/85; PULSE 74; RESP 16; TEMP 97.9; O2SAT 99
== END 2024-10-19 12:01 | disposition home or self-care (01) | DRG 293 ==
LOC: CENTRAL 20:00 → TELE-CENTR 22:44
PROVIDERS: ADMIT Specialist; ATTEND Specialist
DX: I11.0 Hypertensive heart disease with heart failure (principal); I50.810 Right heart failure, unspecified; E66.09 Other obesity due to excess calories; T40.2X5A Adverse effect of other opioids, initial encounter; L50.9 Urticaria, unspecified; Z79.899 Other long term (current) drug therapy; Z68.29 Body mass index [BMI] 29.0-29.9, adult; Y92.89 Other specified places as the place of occurrence of the external cause
CPT/HCPCS: 36415; 71046; 80048; 80053; 80061; 81001; 82607; 82746; 83036; 83735; 83880; 84100; 84443; 85025; 93306; 93970; 93975; G0378